=== PATIENT | male | born 1960 | race Caucasian/White ===

== ENCOUNTER 2024-01-16 00:13 | Inpatient (IN) | payer MEDICAID ==
[2024-01-16] VITALS (11 sets, daily range): BP systolic 122–164; BP diastolic 92–114; PULSE 57–104; RESP 13–18; TEMP 97.7; O2SAT 96–97
[~2024-01-16] VITALS: Ht 177.8 cm; Wt 100.0 kg
[~2024-01-16 00:13] MED LIST: ASPI-1009 PO; LANS15CA18 PO; LISI20TA28 PO; SIMV-341 PO
[2024-01-16 00:46] LABS: BASOPHILS # (AUTO) 0.1 X10'3 (0-0.2); BASOPHILS % (AUTO) 0.7 % (0-1); EOSINOPHILS # (AUTO) 0.6 X10'3 (0-0.9); EOSINOPHILS % (AUTO) 5.1 % (0-6); HEMATOCRIT 50.4 % (42.0-52.0); LYMPHOCYTES # (AUTO) 3.7 X10'3 (1.1-4.8); LYMPHOCYTES % (AUTO) 32.5 % (21-51); MEAN CORPUSCULAR HEMOGLOBIN 31.8 PG (27.0-31.0); MEAN CORPUSCULAR HGB CONC 33.8 g/dL (33.0-36.5); MEAN CORPUSCULAR VOLUME 94.1 FL (78-98); MEAN PLATELET VOLUME 8.5 FL (7.4-10.4); MONOCYTES # (AUTO) 1.2 X10'3 (0-0.9); MONOCYTES % (AUTO) 10.8 % (2-12); NEUTROPHILS # (AUTO) 5.8 X10'3 (1.8-7.7); NEUTROPHILS % (AUTO) 50.9 % (42-75); PLATELET COUNT 261 X10'3 (140-440); RED BLOOD COUNT 5.35 X10'6 (4.70-6.10); RED CELL DISTRIBUTION WIDTH 14.1 % (11.5-14.5); WHITE BLOOD COUNT 11.4 X10'3 (4.5-11.0)
[2024-01-16 00:59] LABS: ALANINE AMINOTRANSFERASE 57 U/L (12-78); ALBUMIN 3.9 G/DL (3.4-5.0); ALKALINE PHOSPHATASE 62 IU/L (46-116); ANION GAP 10 (8-16); BILIRUBIN,TOTAL 0.5 MG/DL (0.1-1.0); BLOOD UREA NITROGEN 12 MG/DL (7-18); BUN/CREATININE RATIO 12.5 (10.0-20.0); CALCIUM 8.9 MG/DL (8.5-10.1); CHLORIDE 103 MMOL/L (99-107); CREATININE 0.96 MG/DL (0.60-1.10); GLUCOSE 99 MG/DL (70-104); SODIUM 139 MMOL/L (135-145); TOTAL CARBON DIOXIDE 25.8 MMOL/L (24-32); TOTAL PROTEIN 7.7 G/DL (6.4-8.2); eCRCL 83 ML/MIN; eGFR 80 ML/MIN
[2024-01-16 01:07] LABS: PRO BRAIN NATRIURETIC PEPTIDE 769 PG/ML (0-125)
[2024-01-16 01:11] LABS: ASPARTATE AMINO TRANSFERASE 37 U/L (10-37); POTASSIUM 4.7 MMOL/L (3.5-5.1)
[2024-01-16] MEDS ORDERED: magnesium hydroxide 30ml (MOM) UD suspension PO PRN (02:40)
[2024-01-16] MEDS ORDERED: aminophylline 250mg/10ml inj. IV PRN (02:40)
[2024-01-16] MEDS ORDERED: morphine 2 MG/ML inj. syringe IV PRN ×2 (02:40)
[2024-01-16] MEDS ORDERED: magnesium sulf-water 4G/100mL 100 ML IV PRN (02:40)
[2024-01-16] MEDS ORDERED: magnesium sulf-water 2g/50mL 50 ML IV PRN (02:40)
[2024-01-16] MEDS ORDERED: magnesium Cl slow-release 64mg tablet PO PRN (02:40)
[2024-01-16] MEDS ORDERED: ondansetron/PF 4mg/2ml inj IV PRN (02:40)
[2024-01-16] MEDS ORDERED: acetaminophen 325mg tablet PO PRN (02:40)
[2024-01-16] MEDS ORDERED: nitroGLYCERIN 0.4mg SUBLingual tab SL PRN ×2 (02:40→03:05)
[2024-01-16] MEDS ORDERED: potassium Cl 20 mEq SR tablet PO PRN ×2 (02:40)
[2024-01-16] MEDS ORDERED: mag hydrox/Alum hydrox/simeth 30ml oral suspension PO PRN (02:40)
[2024-01-16] MEDS ORDERED: potassium Cl 40MEQ/1/2NS 520ml 520 ML IV PRN (02:40)
[2024-01-16] MEDS ORDERED: metoprolol tartrate 1mg/ml inj IV PRN (02:40)
[2024-01-16] MEDS ORDERED: LISI5TAB22 PO (02:53)
[2024-01-16] MEDS: apixaban 5mg tablet PO SCH ×2 (03:46→11:55)
[2024-01-16 03:49] LABS: CHOL/HDL RATIO 3.7 (0.00-4.99); CHOLESTEROL 183 MG/DL (0-200); HDL CHOLESTEROL 49 MG/DL (35-60); LDL CHOLESTEROL 107 MG/DL (50-100); MAGNESIUM 1.7 MG/DL (1.5-2.4); POTASSIUM 3.8 MMOL/L (3.5-5.1); TRIGLYCERIDES 74 MG/DL (20-135)
[2024-01-16] MEDS: normal saline 1000ml 1,000 ML IV SCH (04:45)
[2024-01-16] MEDS: thiamine 100mg tablet PO SCH (06:01)
[2024-01-16] MEDS: K and/or MAG REPLACEMENT MC SCH (08:00)
[2024-01-16] MEDS: docusate sod 100mg capsule PO SCH (08:00)
[2024-01-16] MEDS ORDERED: heparin, porcine 5000 units/ml vial SQ SCH (08:00)
[2024-01-16] MEDS: regadenoson 0.4mg/5ml syringe IV PRN (09:35)
[2024-01-16] MEDS: lisinopril 5mg tablet PO SCH (11:22)
[2024-01-16 12:43] LABS: LIPASE 26 U/L (16-77)
[2024-01-16 13:03] LABS: BILIRUBIN,URINE NEGATIVE (Neg); CLARITY,URINE CLEAR (Clear); COLOR,URINE YELLOW (Yellow); GLUCOSE, URINE NEGATIVE (Neg); KETONES,URINE NEGATIVE (Neg); LEUKOCYTE ESTERASE ,URINE NEGATIVE (Neg); NITRITES, URINE NEGATIVE (Neg); OCCULT BLOOD,URINE NEGATIVE (Neg); PH,URINE 6.5 (4.8-8.0); PROTEIN,URINE NEGATIVE (Neg); UROBILINOGEN,URINE 0.2 E.U/dL (0.2-1.0)
[2024-01-16 13:04] LABS: UA COLLECTION TYPE CLN CATCH MIDSTREAM
[2024-01-16] MEDS ORDERED: metoprolol succinate 25mg (24-HOUR) SR. Tablet PO STA (13:34)
[2024-01-16] MEDS ORDERED: ASPI-1071 PO (13:36)
[2024-01-16] MEDS ORDERED: METO-395 PO (13:36)
[2024-01-16] MEDS ORDERED: ATOR20TA66 PO (13:36)
[2024-01-16] MEDS ORDERED: APIX5TAB3 PO (13:36)
[2024-01-16] MEDS: metoprolol succinate 25mg (24-HOUR) SR. Tablet PO ONE (13:43)
[2024-01-16] MEDS: metoprolol succinate 25mg (24-HOUR) SR. Tablet PO SCH (13:49)
[2024-01-16] MEDS ORDERED: LISI10TA27 PO (15:13)
[2024-01-16] MEDS ORDERED: ASPI81TA52 PO (15:54)
[2024-01-16] MEDS ORDERED: atorvastatin 20mg tablet PO SCH (21:00)
[2024-01-17] MEDS ORDERED: aspirin 81mg, enteric-coated 1 TAB TABLET.DR PO SCH (08:00)
== END 2024-01-16 16:25 | disposition home or self-care (01) | DRG 201 ==
LOC: ER 00:15 → ED HOLD 02:13 → PCU 3S 04:40
PROVIDERS: ADMIT Internal Medicine Sleep Medicine; ATTEND Nurse Practitioner Family
PROC: 4A02XM4 Measurement of Cardiac Total Activity, External Approach (ICD-10-PCS; principal; 2024-01-16)
PROC: 3E073KZ Introduction of Other Diagnostic Substance into Coronary Artery, Percutaneous Approach (ICD-10-PCS; 2024-01-16)
DX: I48.19 Other persistent atrial fibrillation (principal); E66.811 Obesity, class 1; I20.89 Other forms of angina pectoris; E78.5 Hyperlipidemia, unspecified; I10 Essential (primary) hypertension; Z68.31 Body mass index [BMI] 31.0-31.9, adult; Z79.01 Long term (current) use of anticoagulants
CPT/HCPCS: 36415; 71045; 78452; 80053; 80061; 81003; 83690; 83735; 83880; 84132; 84145; 84443; 84484; 85025; 85651; 87081; 93005; 93017; 99285; A9500; G0378; J2785; J7030